=== PATIENT | female | born 1960 | race Caucasian/White ===

== ENCOUNTER → 2024-09-09 10:53 | Outpatient (REF) | payer BC, SELFPAY | LOC: RAD 10:53 | PROVIDERS: ATTENDING PHYSICIAN Family Medicine | DX: Z78.0 Asymptomatic menopausal state (principal) | CPT/HCPCS: 77080 ==

== ENCOUNTER → 2024-12-16 12:13 | Outpatient (REF) | payer BC, SELFPAY | LOC: HWRAD 12:13 | PROVIDERS: ATTENDING PHYSICIAN Nurse Practitioner Family; FAMILY PHYSICIAN Family Medicine | DX: R22.1 Localized swelling, mass and lump, neck (principal) | CPT/HCPCS: 76536 ==

== ENCOUNTER → 2024-12-23 08:41 | Outpatient (REF) | payer BC, SELFPAY | LOC: RAD 08:41 | PROVIDERS: ATTENDING PHYSICIAN Nurse Practitioner Adult Health; FAMILY PHYSICIAN Student in an Organized Health Care Education/Training Program | DX: C50.411 Malignant neoplasm of upper-outer quadrant of right female breast (principal); D50.8 Other iron deficiency anemias; G62.0 Drug-induced polyneuropathy | CPT/HCPCS: 71260; 74177; 78306; A9503; Q9967 ==

== ENCOUNTER 2025-03-29 06:20 | Outpatient (RCR) | payer BC, SELFPAY | END 2025-03-29 23:59 | disposition home or self-care (01) | LOC: RPT 06:20 | PROVIDERS: ATTENDING PHYSICIAN Physician Assistant Surgical; FAMILY PHYSICIAN Student in an Organized Health Care Education/Training Program | DX: M89.5 Osteolysis (principal); M19.011 Primary osteoarthritis, right shoulder; M75.81 Other shoulder lesions, right shoulder; Z73.6 Limitation of activities due to disability | CPT/HCPCS: 97010; 97110; 97162 ==

== ENCOUNTER 2025-04-19 09:02 | Outpatient (RCR) | payer BC, SELFPAY | END 2025-04-19 23:59 | disposition home or self-care (01) | LOC: RPT 09:02 | PROVIDERS: ATTENDING PHYSICIAN Physician Assistant Surgical; FAMILY PHYSICIAN Student in an Organized Health Care Education/Training Program | DX: M89.5 Osteolysis (principal); M19.011 Primary osteoarthritis, right shoulder; M75.81 Other shoulder lesions, right shoulder; Z73.6 Limitation of activities due to disability; M62.81 Muscle weakness (generalized) | CPT/HCPCS: 97110 ==

== ENCOUNTER 2025-04-28 06:15 | Outpatient (RCR) | payer BC, SELFPAY | END 2025-04-28 23:59 | disposition home or self-care (01) | LOC: RPT 06:15 | PROVIDERS: ATTENDING PHYSICIAN Urology; FAMILY PHYSICIAN Student in an Organized Health Care Education/Training Program | DX: N39.3 Stress incontinence (female) (male) (principal); N39.41 Urge incontinence; N94.10 Unspecified dyspareunia; M62.89 Other specified disorders of muscle; Z73.6 Limitation of activities due to disability | CPT/HCPCS: 97163; 97530 ==

== ENCOUNTER 2025-05-08 12:05 | Outpatient (RCR) | payer BC, SELFPAY | END 2025-05-08 23:59 | disposition home or self-care (01) | LOC: RPT 12:05 | PROVIDERS: ATTENDING PHYSICIAN Urology; FAMILY PHYSICIAN Student in an Organized Health Care Education/Training Program | DX: N39.3 Stress incontinence (female) (male) (principal); N39.41 Urge incontinence; N94.10 Unspecified dyspareunia; M62.89 Other specified disorders of muscle; Z73.6 Limitation of activities due to disability | CPT/HCPCS: 97112; 97140; 97530 ==

== ENCOUNTER 2025-06-23 14:57 | Outpatient (RCR) | payer BC, SELFPAY | END 2025-06-23 23:59 | disposition home or self-care (01) | LOC: RPT 14:57 | PROVIDERS: ATTENDING PHYSICIAN Urology; FAMILY PHYSICIAN Student in an Organized Health Care Education/Training Program | DX: N39.3 Stress incontinence (female) (male) (principal); N39.41 Urge incontinence; N94.10 Unspecified dyspareunia; M62.89 Other specified disorders of muscle; Z73.6 Limitation of activities due to disability | CPT/HCPCS: 97014; 97112; 97140; 97530 ==

== ENCOUNTER 2025-07-28 15:04 | Outpatient (RCR) | payer BC, SELFPAY | END 2025-07-28 23:59 | disposition home or self-care (01) | LOC: RPT 15:04 | PROVIDERS: ATTENDING PHYSICIAN Urology; FAMILY PHYSICIAN Student in an Organized Health Care Education/Training Program | DX: N39.3 Stress incontinence (female) (male) (principal); N39.41 Urge incontinence; N94.10 Unspecified dyspareunia; M62.89 Other specified disorders of muscle; Z73.6 Limitation of activities due to disability | CPT/HCPCS: 97014; 97112; 97140; 97530 ==

== ENCOUNTER 2025-08-29 16:00 | Outpatient (RCR) | payer BC, SELFPAY | END 2025-08-29 23:59 | disposition home or self-care (01) | LOC: RPT 16:00 | PROVIDERS: ATTENDING PHYSICIAN Urology; FAMILY PHYSICIAN Student in an Organized Health Care Education/Training Program | DX: N39.3 Stress incontinence (female) (male) (principal); N39.41 Urge incontinence; N94.10 Unspecified dyspareunia; M62.89 Other specified disorders of muscle; Z73.6 Limitation of activities due to disability | CPT/HCPCS: 97014; 97110; 97112; 97530 ==

== ENCOUNTER 2025-09-08 11:48 | Outpatient (RCR) | payer BC, SELFPAY | END 2025-09-08 23:59 | disposition home or self-care (01) | LOC: RPT 11:48 | PROVIDERS: ATTENDING PHYSICIAN Urology; FAMILY PHYSICIAN Student in an Organized Health Care Education/Training Program | DX: N39.3 Stress incontinence (female) (male) (principal); N39.41 Urge incontinence; N94.10 Unspecified dyspareunia; M62.89 Other specified disorders of muscle; Z73.6 Limitation of activities due to disability | CPT/HCPCS: 97014; 97110; 97112; 97140; 97530 ==

== ENCOUNTER 2025-09-22 06:18 | Outpatient (RCR) | payer BC, SELFPAY | END 2025-09-22 23:59 | disposition home or self-care (01) | LOC: RPT 06:18 | PROVIDERS: ATTENDING PHYSICIAN Family Medicine Geriatric Medicine; FAMILY PHYSICIAN Student in an Organized Health Care Education/Training Program | DX: M62.81 Muscle weakness (generalized) (principal); L59.8 Other specified disorders of the skin and subcutaneous tissue related to radiation; R29.3 Abnormal posture; Z85.3 Personal history of malignant neoplasm of breast; Z90.13 Acquired absence of bilateral breasts and nipples | CPT/HCPCS: 97163; 97530 ==

== ENCOUNTER 2025-10-25 06:24 | Outpatient (RCR) | payer BC, SELFPAY | END 2025-10-25 23:59 | disposition home or self-care (01) | LOC: RPT 06:24 | PROVIDERS: ATTENDING PHYSICIAN Family Medicine Geriatric Medicine; FAMILY PHYSICIAN Student in an Organized Health Care Education/Training Program | DX: M62.81 Muscle weakness (generalized) (principal); L59.8 Other specified disorders of the skin and subcutaneous tissue related to radiation; R29.3 Abnormal posture; Z85.3 Personal history of malignant neoplasm of breast; Z90.13 Acquired absence of bilateral breasts and nipples | CPT/HCPCS: 97110; 97140; 97530 ==

== ENCOUNTER 2025-11-20 07:34 | Outpatient (RCR) | payer BC, SELFPAY | END 2025-11-20 23:59 | disposition home or self-care (01) | LOC: RPT 07:34 | PROVIDERS: ATTENDING PHYSICIAN Family Medicine Geriatric Medicine; FAMILY PHYSICIAN Student in an Organized Health Care Education/Training Program | DX: M62.81 Muscle weakness (generalized) (principal); L59.8 Other specified disorders of the skin and subcutaneous tissue related to radiation; R29.3 Abnormal posture; Z85.3 Personal history of malignant neoplasm of breast; Z90.13 Acquired absence of bilateral breasts and nipples | CPT/HCPCS: 97112; 97140; 97530 ==